=== PATIENT | male | born 2000 | race Caucasian/White ===

== ENCOUNTER 2023-05-13 18:30 | Emergency (ER) | payer MEDICAID ==
[~2023-05-13] VITALS: Ht 165.1 cm; Wt 82.0 kg
[2023-05-13 18:46] VITALS: O2SAT 97
[2023-05-13] MEDS ORDERED: LIDOCAINE HCL/PF 1% 10 MG/ML 5ML VIAL INFIL ONE (20:15)
[2023-05-13] MEDS ORDERED: TETANUS, DIPHTHERIA, PERTUSSIS VAC/PF 0.5ML (>10YR OLD) IM ONE (20:15)
[2023-05-13] MEDS ORDERED: BACITRACIN ZINC OINT UDPKT TOP ONE (20:15)
[2023-05-13] MEDS ORDERED: KETOROLAC 30MG/ML VIAL IM ONE (20:30)
[2023-05-13 20:43] VITALS: BP 123/70
[2023-05-13] MEDS ORDERED: NAPR-679 MT (22:18)
[2023-05-13] MEDS ORDERED: LIDO700A15 TP (22:18)
[2023-05-13 22:35] VITALS: PULSE 79; RESP 18; TEMP 98.3
== END 2023-05-13 22:36 | disposition home or self-care (01) ==
LOC: ER 18:30
DX: S01.81XA Laceration without foreign body of other part of head, initial encounter (principal); R68.84 Jaw pain; X58.XXXA Exposure to other specified factors, initial encounter; Y93.89 Activity, other specified; Y92.89 Other specified places as the place of occurrence of the external cause; Y99.8 Other external cause status
CPT/HCPCS: 71101; 70486; 90715; 12013; 90471; 96372; 99285; J1885; Z7610 ×4